=== PATIENT | male | born 1955 | race Caucasian/White ===

== ENCOUNTER → 2017-02-12 | Day surgery (SDC) | payer OTHER ==
[~2017-02-12] MED LIST: IBUPROFEN800 MG PO; LORTAB 7.5-5001 TAB; MEN 50 PLUS MU1 EACH PO; PHENERGAN25 M1; VOLTAREN75 MG PO
--- NOTE | ~2017-02-12 | OR ---
Unit #: [id number] #: [id number] Patient: LUCY SELF [id number] [address] [place], [place] [address] [id number] O MR#: [id number] NAME: LUCY SELF ROOM: Date of Procedure: 02/12/2017 Admission Date: 02/12/2017 Surgeon: Boris Meadows M.D. : 1955 Attending Physician: Boris Meadows M.D. Primary Care Physician: Napoleon Marroquin M.D. OPERATIVE REPORT PREOPERATIVE DIAGNOSIS Right inguinal hernia. POSTOPERATIVE DIAGNOSIS Indirect right inguinal hernia. PROCEDURE PERFORMED Open repair with mesh. ANESTHESIA General endotracheal anesthesia. ESTIMATED BLOOD LOSS Less than 10 mL. INDICATIONS FOR PROCEDURE A 61-year-old gentleman presents with a painful bulge in right inguinal region. On examination, he had a reducible right inguinal hernia. DESCRIPTION OF PROCEDURE The patient was admitted to [facility], positively identified, and transported to the operating room. After induction of general endotracheal anesthesia, he received antibiotics per SCIP protocol and was prepped and draped in usual sterile fashion. A transverse incision in the skin line was made over the inguinal canal. We dissected down through the soft tissue exposing the external oblique aponeurosis. The aponeurosis was opened in direction of fibers to include the external ring. The ilioinguinal nerve was identified and preserved. The cord structures were elevated from the floor of the inguinal canal and encircled with a Royal drain. I dissected out the floor of the inguinal canal, the pubic tubercle, shelving edge of inguinal ligament, and the rectus sheath. The cord structures were then evaluated. There was an indirect hernia sac that was from the cord structures, which were preserved. There was no incarcerated components, so the hernia sac was twisted, closed, and suture ligated and excess sac excised. The stump of the sac was reduced through the internal ring back in the peritoneal cavity and held in reduction with a medium PerFix plug. The plug was secured with 0 Ethibond interrupted sutures. The onlay mesh was then placed over the inguinal canal. The toe was secured to the pubic tubercle medially. The cord structures as they exited the internal ring and secured the musculofascial tissues superior and lateral to the internal ring. The limbs of the mesh were secured to the shelving edge of the Unit #: [id number] #: [id number] Patient: LUCY SELF inguinal ligament and the rectus sheath. Once the mesh was adequately positioned, 30 mL of 0.5% Marcaine with epinephrine was infiltrated into the fascia and soft tissue. The spermatic cord was placed back in the anatomic position. There was good hemostasis. I irrigated and then infiltrated with 30 mL of 0.5% Marcaine with epinephrine into the fascia and soft tissue. 3-0 Vicryl running suture was used to close the soft tissue and then the skin was closed with 4-0 Monocryl running subcuticular closure and Dermabond skin adhesive. Sponges and needle counts were correct x3. The patient tolerated the procedure well and transported to recovery in stable condition. Findings and postoperative instructions were discussed with the patient and his . Dictated by... Jayesh Merida/ed TD: 02/13/2017 00:17 JOB #: [id number] OPERATIVE REPORT Page 1 of 1 X Boris Meadows MD PROCEDURE OPERATIVE NOTE
== END | disposition home or self-care (01) ==
LOC: CSUR 08:14
DX: K40.90 Unilateral inguinal hernia, without obstruction or gangrene, not specified as recurrent (principal); F17.210 Nicotine dependence, cigarettes, uncomplicated; Z96.653 Presence of artificial knee joint, bilateral; Z88.1 Allergy status to other antibiotic agents; Z90.49 Acquired absence of other specified parts of digestive tract
CPT/HCPCS: C1781; J0690; J1885; J2250; J2405; J3010